=== PATIENT | male | born 1960 | race African-American/Black ===

== ENCOUNTER 2018-01-17 19:47 | Emergency (ER) | payer SELFPAY ==
[~2018-01-17] VITALS: Ht 188 cm; Wt 78.0 kg
--- NOTE | 2018-01-17 20:13 | NUR ---
Dr. Saleem at bedside for MSE.
[2018-01-17] MEDS ORDERED: HYDROCODONE/APAP 5-325MG TABLET ONE (20:26)
[2018-01-17] MEDS ORDERED: NEOMY/BACITRA/POLYMYXIN B OINT UD PACKET TP ONE ×2 (20:27→20:30)
[2018-01-17] MEDS ORDERED: TDAP DIPH,PERTUSS,TET VAC/PF 0.5 ML DISP.SYRIN IM ONE ×2 (20:27→20:30)
[2018-01-17] MEDS ORDERED: HYDROCODONE/APAP 5-325MG TABLET PO ONE (20:30)
--- NOTE | 2018-01-17 21:04 | NUR ---
Pt states pain still feels the same, MD notified.
[2018-01-17] MEDS ORDERED: ONDANSETRON 4 MG/2 ML VIAL ONE (21:12)
[2018-01-17] MEDS ORDERED: MORPHINE SULFATE 4 MG/1 ML DISP.SYRIN ONE (21:12)
[2018-01-17] MEDS ORDERED: MORPHINE SULFATE 4 MG/1 ML DISP.SYRIN IM ONE (21:15)
[2018-01-17] MEDS ORDERED: ONDANSETRON 4 MG/2 ML VIAL IM ONE (21:15)
--- NOTE | 2018-01-17 21:15 | NUR ---
Patient discharged to home in stable conditon. Written and verbal after care instructions given. Patient verbalizes understanding of instructions. Pt ambulated out of ER with steady gait, no acute signs of distress, VSS, all belongings taken.
[2018-01-17 21:16] VITALS: BP 150/99
== END 2018-01-17 21:17 | disposition home or self-care (01) ==
LOC: ER 19:50
DX: S00.83XA Contusion of other part of head, initial encounter (principal); S00.81XA Abrasion of other part of head, initial encounter; W01.0XXA Fall on same level from slipping, tripping and stumbling without subsequent striking against object, initial encounter; Y93.89 Activity, other specified; Y92.89 Other specified places as the place of occurrence of the external cause; Y99.8 Other external cause status
CPT/HCPCS: 90715; A4217; A4663; J2270; J2405